=== PATIENT | female | born 1975 | race Caucasian/White ===

== ENCOUNTER 2023-10-12 06:26 | Day surgery (SDC) | payer MEDICARE ==
[2023-10-11 11:04] VITALS: BMI 47.2
[2023-10-12] MEDS ORDERED: Lidocaine 2% PF 5 ML VIAL ONE (06:53)
[2023-10-12] MEDS ORDERED: PROPOFOL 20 ML ONE ×5 (06:53→08:08)
[2023-10-12] MEDS ORDERED: ePHEDrine Sulfate 50 MG/10 ML VIAL ONE (07:50)
[2023-10-12] MEDS ORDERED: PHENYLEPHRINE-NS 100 MCG/ML 10 ML SYRINGE ONE (08:07)
== END 2023-10-12 09:14 | disposition home or self-care (01) ==
LOC: SDC 06:26
PROVIDERS: ATTEND Internal Medicine
PROC: 0DB58ZX Excision of Esophagus, Via Natural or Artificial Opening Endoscopic, Diagnostic (ICD-10-PCS; principal; 2023-10-12)
PROC: 0DB68ZX Excision of Stomach, Via Natural or Artificial Opening Endoscopic, Diagnostic (ICD-10-PCS; 2023-10-12)
PROC: 0DJD8ZZ Inspection of Lower Intestinal Tract, Via Natural or Artificial Opening Endoscopic (ICD-10-PCS; 2023-10-12)
DX: Z12.11 Encounter for screening for malignant neoplasm of colon (principal); K31.89 Other diseases of stomach and duodenum; K21.00 Gastro-esophageal reflux disease with esophagitis, without bleeding; K29.00 Acute gastritis without bleeding; R13.10 Dysphagia, unspecified; G47.33 Obstructive sleep apnea (adult) (pediatric); F31.9 Bipolar disorder, unspecified; F17.200 Nicotine dependence, unspecified, uncomplicated; Z98.84 Bariatric surgery status; Z88.1 Allergy status to other antibiotic agents; Z88.0 Allergy status to penicillin; Z88.2 Allergy status to sulfonamides; Z88.8 Allergy status to other drugs, medicaments and biological substances; Z79.899 Other long term (current) drug therapy
CPT/HCPCS: 43239; G0121; 88305; 88312; 88313; 88342; J2001; J2704

== ENCOUNTER 2023-11-12 08:32 | Outpatient (CLI) | payer MEDICARE | END 2023-11-12 08:33 | disposition home or self-care (01) | LOC: NM 08:32 | PROVIDERS: ATTEND Podiatrist Foot & Ankle Surgery | DX: M84.374A Stress fracture, right foot, initial encounter for fracture (principal); M86.9 Osteomyelitis, unspecified | CPT/HCPCS: 78315; A9503 ==

== ENCOUNTER 2023-12-06 11:45 | Outpatient (CLI) | payer MEDICARE | END 2023-12-06 11:46 | LOC: PET 11:45 | DX: C51.9 Malignant neoplasm of vulva, unspecified (principal) | CPT/HCPCS: 78815; A9552 ==